=== PATIENT | male | born 1960 | race Caucasian/White ===

== ENCOUNTER 2019-01-01 06:35 | Outpatient (CLI) | payer MEDICARE ==
[2019-01-01 11:12] LABS: BASOPHILS % 0.7 % (0.0-1.5); NEUTROPHILS # 6.7 # k/uL (1.4-7.7)
[2019-01-01 11:13] LABS: A1C 6.1 % (<5.7); HDL 27 mg/dL (>40); eGFR (Non-African) > 60
== END 2019-01-01 06:37 ==
LOC: LAB 06:35
PROVIDERS: ATTEND Family Medicine
DX: I63.522 Cerebral infarction due to unspecified occlusion or stenosis of left anterior cerebral artery (principal); E13.40 Other specified diabetes mellitus with diabetic neuropathy, unspecified
CPT/HCPCS: 80053; 80061; 83036; 84153; 85025; 86803